=== PATIENT | male | born 1990 | race Hispanic/Latino ===

== ENCOUNTER 2017-06-07 01:03 | Emergency (ER) | payer OTHER ==
[~2017-06-07] VITALS: Ht 167.6 cm; Wt 134.7 kg
[2017-06-07 01:31] LABS: BILIRUBIN,URINE NEGATIVE (NEGATIVE); CLARITY,URINE CLEAR (CLEAR); COLOR,URINE YELLOW (YELLOW); KETONES,URINE NEGATIVE (NEGATIVE); LEUKOCYTE ESTERASE ,URINE NEGATIVE (NEGATIVE); NITRITE,URINE NEGATIVE (NEGATIVE); PROTEIN,URINE DIPSTICK NEGATIVE (NEGATIVE); URINE UROBILINOGEN 0.2 mg/dL (0.2 - 1)
[2017-06-07 01:36] LABS: BACTERIA,URINE RARE /HPF; EPITHELIAL CELLS,URINE RARE /LPF; WBC,URINE (MAN) 0-5 /HPF (0-5)
== END 2017-06-07 02:23 | disposition home or self-care (01) ==
LOC: ER 01:03
DX: R42 Dizziness and giddiness (principal); E86.0 Dehydration
CPT/HCPCS: 81001; 99282